=== PATIENT | female | born 1955 | race Caucasian/White ===

== ENCOUNTER → 2016-10-09 | Outpatient (CLI) | payer MEDICARE ==
--- NOTE | 2016-10-14 10:20 | P.ARTDOP ---
Arterial Doppler LOWER EXTREMITY ARTERIAL DOPPLER: DATE OF SERVICE: 10/09/2016 Reason for study: Leg pain. Doppler waveforms: Multiphasic at the femoral level and atypical below. Pulse volume recording: Progressive blunting from calf and ankle. Pressure gradients: Above the low 5 bilaterally. Ankle-brachial indices: 0.71 on the right and 0.63 on the left. Toe pressures: [] on the right, [] on the left Impression: Moderate bilateral fem-pop disease. Clinical correlation recommended..
== END | disposition home or self-care (01) ==
LOC: RADUSWWP 08:15
PROVIDERS: ATTEND Family Medicine
DX: G89.4 Chronic pain syndrome (principal)
CPT/HCPCS: 93923

== ENCOUNTER 2018-02-17 19:00 | Inpatient (IN) | payer MEDICARE ==
[~2018-02-17 19:00] MED LIST: HYDROcodone/APAP 10-325MG 1 EACH TAB ONE
[2018-02-17] MEDS ORDERED: ASPIRIN 81 MG PO STA (19:28)
[2018-02-17 19:41] LABS: Basophils % (A) 0 %; Eosinophils # (A) 0.1 k/uL (0-0.7); Eosinophils % (A) 1 %; HCT 35.7 % (34.0-46.0); HGB 11.5 gm/dL (11.4-16.0); Hypochromasia Slight; Lymphocytes # (A) 1.5 k/uL (1.0-4.8); Lymphocytes % (A) 28 %; MCH 27.7 pg (25.0-35.0); MCHC 32.3 g/dL (31.0-37.0); MCV 85.6 fL (80.0-100.0); Mean Platelet Volume 7.9; Monocytes # (A) 0.5 k/uL (0-1.0); Monocytes % (A) 9 %; Neutrophils # (A) 3.2 k/uL (1.3-7.7); Neutrophils % (A) 58 %; Platelet Count 220 k/uL (150-450); RBC 4.17 m/uL (3.80-5.40); RDW 15.7 % (11.5-15.5); WBC 5.5 k/uL (3.8-10.6)
[2018-02-17 19:49] LABS: Partial Thromboplastin Time 25.7 sec (22.0-30.0); Prothrombin Time 9.7 sec (9.0-12.0)
[2018-02-17 20:00] LABS: Albumin 3.7 g/dL (3.5-5.0); Calcium 8.9 mg/dL (8.4-10.2); Magnesium 2.1 mg/dL (1.6-2.3); Potassium 4.9 mmol/L (3.5-5.1); Total Bilirubin 0.2 mg/dL (0.2-1.3); Total Protein 6.5 g/dL (6.3-8.2)
--- NOTE | 2018-02-17 20:01 | XR ---
EXAMINATION TYPE: XR chest 2V DATE OF EXAM: 02/17/2018 COMPARISON: 08/27/2010 HISTORY: Left side chest pain TECHNIQUE: Frontal and lateral views of the chest are obtained. FINDINGS: Heart is normal. Lungs are clear of consolidation. There are sternal wires. There are surg ical clips in the anterior mediastinum. There is no pleural effusion. Bony thorax is intact. There is osteopenia. IMPRESSION: No active cardiopulmonary disease. Heart and lungs are unchanged compared to old exam.
[2018-02-17 20:07] LABS: Creatine Kinase 87 U/L (30-135)
--- NOTE | 2018-02-17 20:07 | ED ---
General Adult HPI - General Chief complaint: Chest Pain Stated complaint: Chest Heaviness Source: patient Mode of arrival: wheelchair Limitations: no limitations - History of Present Illness Initial comments: Dictation was produced using [employer] dictation software. please excuse any grammatical, word or spelling errors. Chief Complaint: 62-year-old female past medical history of coronary artery disease, status post CABG and multiple stents since with chest heaviness times one day. History of Present Illness: Patient states she was at home when approximately 3 PM she began experiencing chest tightness. Patient denies any radiation to the shoulders or the neck. Denies any associated shortness of breath or diaphoresis. Patient took one sublingual ventricular strain with improvement of her symptoms. She was instructed to come here by her primary care physician. Patient last seen a ict project manager proximally 2 years ago where a provocative testing was done. Patient has not had any issues since. Patient still complaining of some chest tightness over improved since the nitroglycerin. Denies any constitutional symptoms. The ROS documented in this emergency department record has been reviewed and confirmed by me. Those systems with pertinent positive or negative responses have been documented in the HPI. All other systems are other negative and/or noncontributory. - Related Data Home Medications Medication Instructions Recorded Confirmed Cilostazol [Pletal] 100 mg PO BID 02/17/18 02/17/18 Citalopram Hydrobromide [CeleXA] 20 mg PO DAILY 02/17/18 02/17/18 Docusate [Colace] 100 mg PO DAILY 02/17/18 02/17/18 Doxepin [SINEquan] 25 mg PO HS 02/17/18 02/17/18 Hydrocodone/Acetaminophen [[place] 1 tab PO QID 02/17/18 02/17/18 10-325] Labetalol [Trandate] 100 mg PO BID 02/17/18 02/17/18 Lansoprazole [Prevacid] 15 mg PO DAILY 02/17/18 02/17/18 Morphine Sulfate [Ms Contin] 15 mg PO DAILY 02/17/18 02/17/18 hydrALAZINE HCL [Apresoline] 100 mg PO TID 02/17/18 02/17/18 Allergies Allergy/AdvReac Type Severity Reaction Status Date / Time No Known Allergies Allergy Verified 02/17/18 19:34 Review of Systems ROS Statement: Those systems with pertinent positive or pertinent negative responses have been documented in the HPI. ROS Other: All systems not noted in ROS Statement are negative. Past Medical History Past Medical History: Coronary Artery Disease (CAD), Hypertension History of Any Multi-Drug Resistant Organisms: None Reported Past Surgical History: Coronary Bypass/CABG, Heart Catheterization With Stent Additional Past Surgical History / Comment(s): gastric bypass, hip Past Psychological History: Depression Smoking Status: Current every day smoker Past Alcohol Use History: None Reported Past Drug Use History: None Reported General Exam - General Exam Comments Initial Comments: PHYSICAL EXAM: General Impression: Alert and oriented x3, not in acute distress HEENT: Normocephalic atraumatic, extra-ocular movements intact, pupils equal and reactive to light bilaterally, mucous membranes moist. Cardiovascular: One out of 6 systolic murmur, regular rate and rhythm Chest: Lungs clear to auscultation bilaterally, no rhonchi, no wheeze, no rales Abdomen: Bowel sounds present, abdomen soft, non-tender, non-distended, no organomegaly Musculoskeletal: Pulses present and equal in all extremities, no peripheral edema Motor: Power 5/5 bilaterally, no focal deficits noted Neurological: CN II-XII grossly intact, no focal motor or sensory deficits noted Skin: Intact with no visualized rashes Psych: Normal affect and mood Limitations: no limitations Course Vital Signs 02/17/18 19:09 Temperature 98.3 F Pulse Rate 78 Respiratory 18 Rate Blood Pressure 186/89 O2 Sat by Pulse 96 Oximetry Medical Decision Making - Medical Decision Making ED course: 62-year-old failed extensive cardiac history presents with patient concerning for ACS. Vital signs upon arrival shows blood pressure 186/ 89, worse vital signs within acceptable limits. Laboratory evaluation shows CBC within normal limits. Coag panel unremarkable. Metabolic panel shows mild elevation of renal markers.Cardiac enzymes are negative. Discussed with patient that we recommend that she be admitted to the hospital for further cardiac provocative testing. Patient given the option to stay under observation however she went to leave AGAINST MEDICAL ADVICE. Discussed with patient that her symptoms are suspicious for acute coronary syndrome. Discussed patient that if she believes she is at risk for having a major adverse cardiac event. She understands the risk. She is told that if she has worsening chest pain to come back to the emergency department otherwise she should follow-up with her primary care physician. EKG Interpretation: A 12 lead EKG was obtained. It was interpreted by myself and attending physician. There is a P wave before every QRS complex. Rate is 74. Rhythm is normal sinus rhythm, AL interval 154, care is 92, QTC 3. QT is not prolonged. No ST segment depression or elevation. There is no old EKG for comparison. There is nonspecific T-wave abnormalities to the lateral leads. Not consistent with STEMI - Lab Data Result diagrams: 02/17/18 19:30 02/17/18 19:30 Lab Results 02/17/18 02/17/18 02/17/18 Range/Units 19:30 19:30 19:30 WBC 5.5 (3.8-10.6) k/uL RBC 4.17 (3.80-5.40) m/uL Hgb 11.5 (11.4-16.0) gm/dL Hct 35.7 (34.0-46.0) % MCV 85.6 (80.0-100.0) fL MCH 27.7 (25.0-35.0) pg MCHC 32.3 (31.0-37.0) g/dL RDW 15.7 H (11.5-15.5) % Plt Count 220 (150-450) k/uL Neutrophils % 58 % Lymphocytes % 28 % Monocytes % 9 % Eosinophils % 1 % Basophils % 0 % Neutrophils # 3.2 (1.3-7.7) k/uL Lymphocytes # 1.5 (1.0-4.8) k/uL Monocytes # 0.5 (0-1.0) k/uL Eosinophils # 0.1 (0-0.7) k/uL Basophils # 0.0 (0-0.2) k/uL Hypochromasia Slight PT (9.0-12.0) sec INR (<1.2) APTT (22.0-30.0) sec Sodium 141 (137-145) mmol/L Potassium 4.9 (3.5-5.1) mmol/L Chloride 107 (98-107) mmol/L Carbon Dioxide 27 (22-30) mmol/L Anion Gap 7 mmol/L BUN 19 H (7-17) mg/dL Creatinine 1.30 H (0.52-1.04) mg/dL Est GFR (CKD-EPI)AfAm 51 (>60 ml/min/1.73 sqM) Est GFR (CKD-EPI)NonAf 44 (>60 ml/min/1.73 sqM) Glucose 99 (74-99) mg/dL Calcium 8.9 (8.4-10.2) mg/dL Magnesium 2.1 (1.6-2.3) mg/dL Total Bilirubin 0.2 (0.2-1.3) mg/dL AST 17 (14-36) U/L ALT 20 (9-52) U/L Alkaline Phosphatase 113 (38-126) U/L Total Creatine Kinase 87 (30-135) U/L CK-MB (CK-2) 0.6 (0.0-2.4) ng/mL CK-MB (CK-2) Rel Index 0.7 Troponin I <0.012 (0.000-0.034) ng/mL NT-Pro-B Natriuret Pep pg/mL Total Protein 6.5 (6.3-8.2) g/dL Albumin 3.7 (3.5-5.0) g/dL 02/17/18 02/17/18 Range/Units 19:30 19:30 WBC (3.8-10.6) k/uL RBC (3.80-5.40) m/uL Hgb (11.4-16.0) gm/dL Hct (34.0-46.0) % MCV (80.0-100.0) fL MCH (25.0-35.0) pg MCHC (31.0-37.0) g/dL RDW (11.5-15.5) % Plt Count (150-450) k/uL Neutrophils % % Lymphocytes % % Monocytes % % Eosinophils % % Basophils % % Neutrophils # (1.3-7.7) k/uL Lymphocytes # (1.0-4.8) k/uL Monocytes # (0-1.0) k/uL Eosinophils # (0-0.7) k/uL Basophils # (0-0.2) k/uL Hypochromasia PT 9.7 (9.0-12.0) sec INR 1.0 (<1.2) APTT 25.7 (22.0-30.0) sec Sodium (137-145) mmol/L Potassium (3.5-5.1) mmol/L Chloride (98-107) mmol/L Carbon Dioxide (22-30) mmol/L Anion Gap mmol/L BUN (7-17) mg/dL Creatinine (0.52-1.04) mg/dL Est GFR (CKD-EPI)AfAm (>60 ml/min/1.73 sqM) Est GFR (CKD-EPI)NonAf (>60 ml/min/1.73 sqM) Glucose (74-99) mg/dL Calcium (8.4-10.2) mg/dL Magnesium (1.6-2.3) mg/dL Total Bilirubin (0.2-1.3) mg/dL AST (14-36) U/L ALT (9-52) U/L Alkaline Phosphatase (38-126) U/L Total Creatine Kinase (30-135) U/L CK-MB (CK-2) (0.0-2.4) ng/mL CK-MB (CK-2) Rel Index Troponin I (0.000-0.034) ng/mL NT-Pro-B Natriuret Pep 1450 pg/mL Total Protein (6.3-8.2) g/dL Albumin (3.5-5.0) g/dL Disposition Clinical Impression: Acute coronary syndrome Disposition: Left Against Medical Advice Condition: Fair Is patient prescribed a controlled substance at d/c from ED?: No Referrals: Allyson Petty MD [Primary Care Provider] - 1-2 days Time of Disposition: 20:34
[2018-02-17] MEDS ORDERED: NITROGLYCERIN OINT 1 INCH/GM PACKET TOPICAL STA (20:08)
[2018-02-17 20:19] LABS: Creatine Kinase MB 0.6 ng/mL (0.0-2.4); Troponin I <0.012 ng/mL (0.000-0.034)
[2018-02-17] MEDS ORDERED: HEPARIN SODIUM,PORCINE 5,000 UNIT/ML 1 ML VIAL IV ONE (20:27)
[2018-02-17] MEDS ORDERED: HEPARIN SODIUM,PORCINE 5,000 UNIT/ML 1 ML VIAL IV PRN (20:27)
[2018-02-17] MEDS: HEPARIN SOD,PORK IN 0.45% NACL 25,000 UNIT in 0.45% NACL 1 500ML.BAG IV SCH ×2 (20:32→21:34)
[2018-02-17] MEDS ORDERED: NITROGLYCERIN-D5W PMX 50 MG in DEXTROSE/WATER 1 250ML.BAG IV ONE (20:43)
[2018-02-17] MEDS ORDERED: NALOXONE 0.4 MG/ML 1 ML VIAL IV PRN (20:55)
[2018-02-17] MEDS ORDERED: HEPARIN SODIUM,PORCINE 5,000 UNIT/ML 1 ML VIAL IV STA (21:04)
[2018-02-18] MEDS ORDERED: HYDROcodone/APAP 10-325MG 1 EACH TAB ONE (01:25)
[2018-02-18 03:03] LABS: Basophils % (A) 1 %; Eosinophils # (A) 0.1 k/uL (0-0.7); Eosinophils % (A) 1 %; HCT 34.1 % (34.0-46.0); HGB 10.6 gm/dL (11.4-16.0); Hypochromasia Slight; Lymphocytes # (A) 1.4 k/uL (1.0-4.8); Lymphocytes % (A) 22 %; MCH 26.8 pg (25.0-35.0); MCHC 30.9 g/dL (31.0-37.0); MCV 86.6 fL (80.0-100.0); Mean Platelet Volume 7.1; Monocytes # (A) 0.5 k/uL (0-1.0); Monocytes % (A) 9 %; Neutrophils # (A) 3.8 k/uL (1.3-7.7); Neutrophils % (A) 64 %; Platelet Count 221 k/uL (150-450); RBC 3.94 m/uL (3.80-5.40); RDW 15.7 % (11.5-15.5)
[2018-02-18] MEDS: hydrALAZINE HCL 50 MG TAB PO SCH ×3 (09:04→21:14)
[2018-02-18] MEDS: PANTOPRAZOLE 40 MG TABLET PO SCH (09:04)
[2018-02-18] MEDS: CITALOPRAM HYDROBROMIDE 20 MG TAB PO SCH (09:04)
[2018-02-18] MEDS: DOCUSATE 100 MG CAP PO SCH (09:04)
[2018-02-18] MEDS: LABETALOL 100 MG TAB PO SCH ×2 (09:04→22:52)
[2018-02-18] MEDS: CILOSTAZOL 100 MG TAB PO SCH ×2 (09:04→21:15)
[2018-02-18] MEDS: MORPHINE SULFATE ER 15 MG TABLET PO SCH (10:25)
[2018-02-18] MEDS ORDERED: amLODIPine 5 MG TAB PO SCH (11:45)
[2018-02-18] MEDS: HYDROcodone/APAP 10-325MG 1 EACH TAB PO PRN ×3 (11:52→22:52)
--- NOTE | 2018-02-18 12:07 | P.CRDCN ---
History of Present Illness Consult date: 02/18/18 Requesting physician: Carl Alas Consult reason: chest pain Chief complaint: Chest pain History of present illness: This is a 62-year-old female with history of coronary artery disease and prior bypass surgery in 1999, hypertension, hyperlipidemia, nicotine dependence, who presents to the hospital following an episode of chest pain. She states that she had chest heaviness and pressure around 3 PM in the afternoon yesterday, she took one sublingual nitroglycerin with relief of symptoms. She then came to the emergency room for further evaluation. Patient does not follow with a travel writer regularly, she follows with her primary care doctor who is Dr. Petty. She states that she had a stress test performed approximately 2 years ago. EKG on arrival here showed a normal sinus rhythm with lateral ST-T wave changes noted. Her blood pressure on arrival 186/80 with a heart rate in the 70s, 96% on room air. Blood pressure this morning to 21/101 with a heart rate in the 70s, 94% on room air. White blood cell count 6.0, Humulin 10.6, platelet count 221. D-dimer 1.18, sodium 141, potassium 4.9 , BUN 19, creatinine 1.3, magnesium 2.1. Initial troponin 0.012, no subsequent troponins have been drawn since her admission to the ER. BNP level MCDL. The time of my examination this morning, she is currently chest pain-free and quite eager to be discharged. She is currently on IV heparin drip along with IV nitroglycerin drip. Patient denies any recent long travel or inactivity, no recent surgeries. Past Medical History Past Medical History: Coronary Artery Disease (CAD), Hypertension History of Any Multi-Drug Resistant Organisms: None Reported Past Surgical History: Coronary Bypass/CABG, Heart Catheterization With Stent Additional Past Surgical History / Comment(s): gastric bypass, hip Past Psychological History: Depression Smoking Status: Current every day smoker Past Alcohol Use History: None Reported Past Drug Use History: None Reported Medications and Allergies Home Medications Medication Instructions Recorded Confirmed Type Cilostazol [Pletal] 100 mg PO BID 02/17/18 02/17/18 History Citalopram Hydrobromide [CeleXA] 20 mg PO DAILY 02/17/18 02/17/18 History Docusate [Colace] 100 mg PO DAILY 02/17/18 02/17/18 History Doxepin [SINEquan] 25 mg PO HS 02/17/18 02/17/18 History Hydrocodone/Acetaminophen [[place] 1 tab PO QID 02/17/18 02/17/18 History 10-325] Labetalol [Trandate] 100 mg PO BID 02/17/18 02/17/18 History Lansoprazole [Prevacid] 15 mg PO DAILY 02/17/18 02/17/18 History Morphine Sulfate [Ms Contin] 15 mg PO DAILY 02/17/18 02/17/18 History hydrALAZINE HCL [Apresoline] 100 mg PO TID 02/17/18 02/17/18 History Allergies Allergy/AdvReac Type Severity Reaction Status Date / Time No Known Allergies Allergy Verified 02/17/18 19:34 Physical Exam Vitals: Vital Signs Temp Pulse Resp BP Pulse Ox 02/18/18 11:49 78 16 221/101 94 L 02/18/18 10:28 75 18 193/85 97 02/18/18 09:05 72 18 225/90 98 02/18/18 06:42 193/88 02/17/18 22:17 77 16 191/86 95 02/17/18 22:00 199/85 02/17/18 21:45 75 195/88 95 02/17/18 21:37 77 16 213/96 96 02/17/18 21:30 74 213/96 02/17/18 20:38 221/90 02/17/18 20:35 219/102 02/17/18 19:09 98.3 F 78 18 186/89 96 Intake and Output 02/17/18 02/18/18 02/18/18 22:59 06:59 14:59 Intake Total 160.833 Balance 160.833 Intake: Intake, IV Titration 160.833 Amount Heparin Sod,Pork in 0.45% 160.833 NaCl 25,000 unit In 0.45 % NaCl 1 500ml.bag @ 12 UNITS/KG/HR 12.5 mls/hr IV .Q24H [facility] Rx#: [id number] Other: Weight 52.1 kg PHYSICAL EXAMINATION: GENERAL: 62-year-old female in no distress at the time of my examination HEENT: Head is atraumatic, normocephalic. Pupils equal, round. Sclera anicteric. Conjunctiva are clear. Mucous membranes of the mouth are moist. Neck is supple. There is no elevated jugular venous pressure.] bruit is heard. HEART EXAMINATION: Heart S1, S2 systolic murmur is heard . CHEST EXAMINATION: Lungs are clear to auscultation and precussion. No chest wall tenderness is noted on palpation or with deep breathing. ABDOMEN: Soft, nontender. Bowel sounds are heard. No organomegaly noted. EXTREMITIES: 2+ peripheral pulses with no evidence of peripheral edema and no calf tenderness noted. NEUROLOGIC patient is awake, alert and oriented ?-3. . Results 02/18/18 02:34 02/17/18 19:30 Cardiac Enzymes 02/17/18 02/17/18 Range/Units 19:30 19:30 AST 17 (14-36) U/L CK-MB (CK-2) 0.6 (0.0-2.4) ng/mL Troponin I <0.012 (0.000-0.034) ng/mL Coagulation 02/17/18 02/18/18 02/18/18 Range/Units 19:30 02:34 09:10 PT 9.7 (9.0-12.0) sec APTT 25.7 41.6 H 35.6 H (22.0-30.0) sec CBC 02/17/18 02/18/18 Range/Units 19:30 02:34 WBC 5.5 6.0 (3.8-10.6) k/uL RBC 4.17 3.94 (3.80-5.40) m/uL Hgb 11.5 10.6 L (11.4-16.0) gm/dL Hct 35.7 34.1 (34.0-46.0) % Plt Count 220 221 (150-450) k/uL Comprehensive Metabolic Panel 02/17/18 Range/Units 19:30 Sodium 141 (137-145) mmol/L Potassium 4.9 (3.5-5.1) mmol/L Chloride 107 (98-107) mmol/L Carbon Dioxide 27 (22-30) mmol/L BUN 19 H (7-17) mg/dL Creatinine 1.30 H (0.52-1.04) mg/dL Glucose 99 (74-99) mg/dL Calcium 8.9 (8.4-10.2) mg/dL AST 17 (14-36) U/L ALT 20 (9-52) U/L Alkaline Phosphatase 113 (38-126) U/L Total Protein 6.5 (6.3-8.2) g/dL Albumin 3.7 (3.5-5.0) g/dL Current Medications Generic Name Dose Route Start Last Admin Trade Name Freq PRN Reason Stop Dose Admin Hydrocodone Bitart/Acetaminophen 1 each 02/18/18 09:00 02/18/18 11:52 [place] 10 PO 1 each QID PRN Administration Moderate Pain Amlodipine Besylate 5 mg 02/18/18 11:45 02/18/18 11:49 Norvasc PO 5 mg DAILY [facility] Administration Cilostazol 100 mg 02/18/18 09:00 02/18/18 09:04 Pletal PO 100 mg BID [facility] Administration Citalopram Hydrobromide 20 mg 02/18/18 09:00 02/18/18 09:04 Celexa PO 20 mg DAILY [facility] Administration Docusate Sodium 100 mg 02/18/18 09:00 02/18/18 09:04 Colace PO 100 mg DAILY [facility] Administration Doxepin HCl 25 mg 02/18/18 21:00 [place]ine[place]an PO HS [facility] Heparin Sodium (Porcine) 0 unit 02/17/18 20:27 Heparin IV PER PROTOCOL PRN Low PTT Protocol Hydralazine HCl 100 mg 02/18/18 09:00 02/18/18 09:04 Apresoline PO 100 mg TID [facility] Administration Heparin Sodium/Sodium Chloride 500 mls @ 12.5 mls/hr 02/17/18 20:30 02/18/18 10:26 25,000 unit/ Sodium Chloride IV 15 units/kg/hr .Q24H [facility] 15.63 mls/hr Titration Protocol 12 UNITS/KG/HR Nitroglycerin/Dextrose 50 mg/ 250 mls @ 1.5 mls/hr 02/17/18 20:43 02/17/18 21 :35 IV Solution IV 02/18/18 20:42 5 mcg/min .Q24H ONE 1.5 mls/hr Administration Protocol 5 MCG/MIN Labetalol HCl 100 mg 02/18/18 09:00 02/18/18 09:04 Trandate PO 100 mg BID [facility] Administration Morphine Sulfate 15 mg 02/18/18 09:00 02/18/18 10:25 Ms Contin PO 15 mg DAILY [facility] Administration Naloxone HCl 0.2 mg 02/17/18 20:55 Narcan IV Q2M PRN Opioid Reversal Pantoprazole Sodium 40 mg 02/18/18 07:30 02/18/18 09:04 Protonix PO 40 mg [id number] K[facility]ON Administration Intake and Output 02/17/18 02/18/18 02/18/18 22:59 06:59 14:59 Intake Total 160.833 Balance 160.833 Intake: Intake, IV Titration 160.833 Amount Heparin Sod,Pork in 0.45% 160.833 NaCl 25,000 unit In 0.45 % NaCl 1 500ml.bag @ 12 UNITS/KG/HR 12.5 mls/hr IV .Q24H [facility] Rx#: [id number] Other: Weight 52.1 kg 02/18/18 02:34 02/17/18 19:30 EKG Interpretations (text) EKG shows a normal sinus rhythm with ST-T wave changes noted in the lateral leads Assessment and Plan Plan: Assessment and plan #1 chest discomfort, somewhat concerning for possible angina. Relief with one sublingual nitroglycerin. Initial troponin negative. EKG shows normal sinus rhythm with ST-T wave changes noted in the lateral leads. #2 known history of coronary artery disease with prior bypass surgery, we will obtain details of this #3 hypertension, uncontrolled #4 hyperlipidemia, not on cholesterol medications at home #5 nicotine dependence #6 noncompliance #7 mildly renal function, creatinine 1.3 Plan We will obtain an echocardiogram with Doppler study, we will also obtain 2 subsequent troponins. Patient's d-dimer has back abnormal, we will need to rule out possibility of pulmonary embolism. We will make medication adjustments to optimize blood pressure control. Patient's symptoms may be secondary to her accelerated hypertension, cannot completely rule out coronary artery disease. We will continue IV heparin, discontinue the nitroglycerin drip , start the patient on aspirin and statin. Further recommendations will be based on these findings and patient's clinical course. DNP note has been reviewed, I agree with a documented findings and plan of care. Patient was seen and examined.
--- NOTE | 2018-02-18 12:09 | ECHOF ---
Referral Reason:chest pain MEASUREMENTS -------- HEIGHT: 160.0 cm WEIGHT: 51.7 kg BP: IVSd: 1.3 cm (0.6 - 1.1) LVIDd: 3.6 cm (3.9 - 5.3) LVPWd: 1.6 cm (0.6 - 1.1) IVSs: 1.9 cm LVIDs: 2.6 cm LVPWs: 1.8 cm LAESV Index (A-L): 49.36 ml/m Ao Diam: 2.5 cm (2.0 - 3.7) AV Cusp: 2.1 cm (1.5 - 2.6) LA Diam: 4.5 cm (2.7 - 3.8) MV EXCURSION: 12.148 mm (> 18.000) MV EF SLOPE: 78 mm/s (70 - 150) EPSS: 0.3 cm AV maxP.69 mmHg AV meanP.74 mmHg AR PHT: 387 ms RAP: 5.00 mmHg RVSP: 26.64 mmHg FINDINGS -------- Sinus rhythm. This was a technically good study. The left ventricular size is normal. There is moderate concentric left ventricular hypertrophy. O verall left ventricular systolic function is normal with, an EF between 55 - 60 %. The right ventricle is normal in size and function. LA is severely dilated >40 ml/m2 The right atrium is normal in size. Aortic valve is trileaflet and is mildly thickened. There is mild aortic regurgitation. There is mild aortic stenosis present. Peak/mean gradient across the Aortic Valve is 25.69mmHg / 11.74mmHg. The mitral valve leaflets are mildly thickened. Mild mitral annular calcification present. Modera te mitral regurgitation is present. Mild tricuspid regurgitation present. The right ventricular systolic pressure, as measured by Doppl er, is 26.64mmHg. Pulmonic valve appears structurally normal. The aortic root size is normal. The pericardium is normal. CONCLUSIONS -------- 1. Sinus rhythm. 2. This was a technically good study. 3. The left ventricular size is normal. 4. There is moderate concentric left ventricular hypertrophy. 5. Overall left ventricular systolic function is normal with, an EF between 55 - 60 %. 6. The right ventricle is normal in size and function. 7. LA is severely dilated >40 ml/m2 8. The right atrium is normal in size. 9. Aortic valve is trileaflet and is mildly thickened. 10. There is mild aortic regurgitation. 11. There is mild aortic stenosis present. 12. Peak/mean gradient across the Aortic Valve is 25.69mmHg / 11.74mmHg. 13. The mitral valve leaflets are mildly thickened. 14. Mild mitral annular calcification present. 15. Moderate mitral regurgitation is present. 16. Mild tricuspid regurgitation present. 17. The right ventricular systolic pressure, as measured by Doppler, is 26.64mmHg. 18. Pulmonic valve appears structurally normal. 19. The aortic root size is normal. 20. The pericardium is normal. PLASTERER FOREMAN: Romina Muñiz RDCS
[2018-02-18] MEDS ORDERED: ENALAPRILAT 1.25 MG/ML 1 ML VIAL IVP PRN (12:19)
[2018-02-18] MEDS: NITROGLYCERIN OINT 1 INCH/GM PACKET TOPICAL SCH ×3 (12:56→23:41)
[2018-02-18] MEDS: cloNIDine HCL 0.1 MG TAB PO SCH ×3 (12:56→20:04)
[2018-02-18 14:21] VITALS: BMI 20.3
--- NOTE | 2018-02-18 14:50 | P.HPIM ---
History of Present Illness H&P Date: 02/18/18 Chief Complaint: Chest pressure this is a 62-year-old female patient of Dr. Petty with past medical history of coronary artery disease status post coronary artery bypass graft in 1999 for three-vessel (needed 4 vessel), hypertension. Patient has not followed up with Dr. Thanh Laureano in 5 years. She last saw Dr. child 3 months ago and follows with her every 3 months. Patient developed chest tightness yesterday at 3 PM without radiation, shortness of breath or diaphoresis. Patient came into [facility] emergency center for evaluation. She was found to have a BUN of 19 creatinine 1.30. Unknown baseline. Patient was hypertensive and was started on the nitroglycerin drip which has subsequently been discontinued by cardiology. She was started on amlodipine on top of her normal home medications of labetalol and hydrochlorothiazide. Patient has been ordered for serial troponins, admission to the selective care unit and cardiology consult. Now the patient did not want to stay was planning to sign out AMA which she decided against.. Review of Systems All systems: negative Constitutional: Denies chills, Denies fever Eyes: denies blurred vision, denies pain Ears, nose, mouth and throat: Denies headache, Denies sore throat Cardiovascular: Reports chest pain, Denies lightheadedness, Denies shortness of breath, Denies syncope Respiratory: Denies cough, Denies cough with sputum, Denies dyspnea, Denies excessive sputum, Denies hemoptysis, Denies home oxygen, Denies wheezing Gastrointestinal: Denies abdominal pain, Denies diarrhea, Denies nausea, Denies vomiting Genitourinary: Denies dysuria, Denies hematuria Musculoskeletal: Denies myalgias Integumentary: Denies pruritus, Denies rash Neurological: Denies numbness, Denies weakness Psychiatric: Denies anxiety, Denies depression Endocrine: Denies fatigue, Denies weight change Past Medical History Past Medical History: Coronary Artery Disease (CAD), Hypertension History of Any Multi-Drug Resistant Organisms: None Reported Past Surgical History: Appendectomy, Cholecystectomy, Coronary Bypass/CABG, Heart Catheterization With Stent Additional Past Surgical History / Comment(s): gastric bypass, hip repair, hysterectomy, history of perforated ulcer after gastric bypass Past Psychological History: Depression Smoking Status: Current every day smoker Past Alcohol Use History: None Reported Additional Past Alcohol Use History / Comment(s): Patient is a smoker of 5-6 cigarettes per day since she was 14 years of age. She did quit for 10 years. She denies any alcohol use. No marijuana use. She is . Past Drug Use History: None Reported - Past Family History Sister(s) Family Medical History: Hypertension Additional Family Medical History / Comment(s): Patient has one sister with history of hypertension. Mother Family Medical History: Congestive Heart Failure (CHF), Hypertension Additional Family Medical History / Comment(s): Mother at age 74 from heart failure. Father Family Medical History: Coronary Artery Disease (CAD), Myocardial Infarction (SD ) Additional Family Medical History / Comment(s): Father at age 55 from massive myocardial infarction. Patient is for children with no major medical problems. Medications and Allergies Home Medications Medication Instructions Recorded Confirmed Type Cilostazol [Pletal] 100 mg PO BID 02/17/18 02/17/18 History Citalopram Hydrobromide [CeleXA] 20 mg PO DAILY 02/17/18 02/17/18 History Docusate [Colace] 100 mg PO DAILY 02/17/18 02/17/18 History Doxepin [SINEquan] 25 mg PO HS 02/17/18 02/17/18 History Hydrocodone/Acetaminophen [[place] 1 tab PO QID 02/17/18 02/17/18 History 10-325] Labetalol [Trandate] 100 mg PO BID 02/17/18 02/17/18 History Lansoprazole [Prevacid] 15 mg PO DAILY 02/17/18 02/17/18 History Morphine Sulfate [Ms Contin] 15 mg PO DAILY 02/17/18 02/17/18 History hydrALAZINE HCL [Apresoline] 100 mg PO TID 02/17/18 02/17/18 History Allergies Allergy/AdvReac Type Severity Reaction Status Date / Time No Known Allergies Allergy Verified 02/17/18 19:34 Physical Exam Vitals: Vital Signs Temp Pulse Resp BP Pulse Ox 02/18/18 11:49 78 16 221/101 94 L 02/18/18 10:28 75 18 193/85 97 02/18/18 09:05 72 18 225/90 98 02/18/18 06:42 193/88 02/17/18 22:17 77 16 191/86 95 02/17/18 22:00 199/85 02/17/18 21:45 75 195/88 95 02/17/18 21:37 77 16 213/96 96 02/17/18 21:30 74 213/96 02/17/18 20:38 221/90 02/17/18 20:35 219/102 02/17/18 19:09 98.3 F 78 18 186/89 96 Intake and Output 02/17/18 02/18/18 02/18/18 22:59 06:59 14:59 Intake Total 160.833 Balance 160.833 Intake: Intake, IV Titration 160.833 Amount Heparin Sod,Pork in 0.45% 160.833 NaCl 25,000 unit In 0.45 % NaCl 1 500ml.bag @ 12 UNITS/KG/HR 12.5 mls/hr IV .Q24H [facility] Rx#: [id number] Other: Weight 52.1 kg Gen: This is a 62-year-old female. She is sitting up in bed appears to be in no acute distress. HEENT: Head is atraumatic, normocephalic. Pupils equal, round. Sclerae is anicteric. NECK: Supple. No JVD. No lymphadenopathy. No thyromegaly. LUNGS: Clear to auscultation. No wheezes or rhonchi. No intercostal retractions. HEART: Regular rate and rhythm. Systolic murmur. ABDOMEN: Soft. Bowel sounds are present. No masses. No tenderness. EXTREMITIES: No pedal edema. No calf tenderness. Dorsalis pedis +2 bilaterally. NEUROLOGICAL: Patient is awake, alert and oriented x3. Cranial nerves 2 through 12 are grossly intact. Results CBC & Chem 7: 02/18/18 02:34 02/17/18 19:30 Labs: Abnormal Lab Results - Last 24 Hours (Table) 02/17/18 02/17/18 02/17/18 Range/Units 19:30 19:30 19:30 Hgb (11.4-16.0) gm/dL MCHC (31.0-37.0) g/dL RDW 15.7 H (11.5-15.5) % APTT (22.0-30.0) sec D-Dimer 1.18 H (<0.60) mg/L FEU BUN 19 H (7-17) mg/dL Creatinine 1.30 H (0.52-1.04) mg/dL 02/18/18 02/18/18 02/18/18 Range/Units 02:34 02:34 09:10 Hgb 10.6 L (11.4-16.0) gm/dL MCHC 30.9 L (31.0-37.0) g/dL RDW 15.7 H (11.5-15.5) % APTT 41.6 H 35.6 H (22.0-30.0) sec D-Dimer (<0.60) mg/L FEU BUN (7-17) mg/dL Creatinine (0.52-1.04) mg/dL Thrombosis Risk Factor Assmnt - DVT/VTE Prophylaxis DVT/VTE Prophylaxis: Pharmacologic Prophylaxis ordered Assessment and Plan Plan: 1. Emergent hypertension initially placed on heparin drip. Continue home dose of hydrochlorothiazide, Trandate, Norvasc added by cardiology. We've also added and clonidine scheduled and Vasotec as needed. Cardiology consult is appreciated. 2. Chest pain, possible angina. Serial cardiac enzymes. Heparin drip. Cardiology is on consult. 3. History of coronary artery disease status post previous CABG. Continue aspirin. 4. Recurrent depression. Continue doxepin 25 mg at bedtime, Celexa 20 mg daily. 5. Chronic pain. Continue MS Contin 15 mg daily. 6. DVT prophylaxis. Heparin gtt. 7. DVT prophylaxis. Pepcid. Patient will be admitted to the hospital for a minimum of 2 night stay. Discharge plan: return home Impression and plan of care have been directed as dictated by the signing physician. Milagro Gordon nurse practitioner acting as scribe for signing physician.
--- NOTE | 2018-02-18 16:58 | NM ---
EXAMINATION TYPE: NM pul vent and perfuse DATE OF EXAM: 02/18/2018 COMPARISON: NONE HISTORY: Chest pain TECHNIQUE: Utilizing inhalation of 31.4 mCi Tc 99m DTPA aerosol and intravenous injection of 5.13 mC i of Tc 99m MAA, ventilation and perfusion images are acquired post injection in multiple projections . FINDINGS: There is decreased ventilation in the mid and upper lung britt bilaterally. Perfusion images are smita rly normal. There is no segmental type defect. IMPRESSION: Decreased ventilation in the mid and upper lung britt consistent with airway disease. There is a smita rly normal perfusion lung scan. There is a very low probability of pulmonary embolism.
[2018-02-18] MEDS: HYDROCHLOROTHIAZIDE 25 MG TAB PO SCH (17:04)
[2018-02-18] MEDS: amLODIPine 5 MG TAB PO SCH (20:05)
[2018-02-18] MEDS ORDERED: ATORVASTATIN 80 MG TAB PO SCH (21:00)
[2018-02-18] MEDS ORDERED: DOXEPIN 25 MG CAP PO SCH (21:00)
[2018-02-18] MEDS ORDERED: CALCIUM CARBONATE 500 MG CHEWABLE PO PRN (21:21)
[2018-02-19] MEDS: NITROGLYCERIN OINT 1 INCH/GM PACKET TOPICAL SCH ×2 (06:02→11:29)
[2018-02-19] MEDS: PANTOPRAZOLE 40 MG TABLET PO SCH (06:08)
[2018-02-19] MEDS: hydrALAZINE HCL 50 MG TAB PO SCH (06:08)
[2018-02-19] MEDS: cloNIDine HCL 0.1 MG TAB PO SCH (06:09)
[2018-02-19 06:27] LABS: Basophils % (A) 1 %; Eosinophils # (A) 0.1 k/uL (0-0.7); Eosinophils % (A) 2 %; HCT 32.1 % (34.0-46.0); HGB 10.1 gm/dL (11.4-16.0); Hypochromasia Slight; Lymphocytes # (A) 1.2 k/uL (1.0-4.8); Lymphocytes % (A) 35 %; MCH 27.2 pg (25.0-35.0); MCHC 31.5 g/dL (31.0-37.0); MCV 86.2 fL (80.0-100.0); Mean Platelet Volume 7.7; Monocytes # (A) 0.3 k/uL (0-1.0); Monocytes % (A) 9 %; Neutrophils # (A) 1.7 k/uL (1.3-7.7); Neutrophils % (A) 51 %; Platelet Count 194 k/uL (150-450); RBC 3.73 m/uL (3.80-5.40); RDW 15.7 % (11.5-15.5); WBC 3.3 k/uL (3.8-10.6)
[2018-02-19] MEDS: LABETALOL 100 MG TAB PO SCH (08:11)
[2018-02-19] MEDS: DOCUSATE 100 MG CAP PO SCH (08:11)
[2018-02-19] MEDS: CITALOPRAM HYDROBROMIDE 20 MG TAB PO SCH (08:12)
[2018-02-19] MEDS: amLODIPine 5 MG TAB PO SCH (08:12)
[2018-02-19] MEDS: HYDROCHLOROTHIAZIDE 25 MG TAB PO SCH (08:12)
[2018-02-19] MEDS: CILOSTAZOL 100 MG TAB PO SCH (08:14)
[2018-02-19] MEDS: MORPHINE SULFATE ER 15 MG TABLET PO SCH (08:16)
[2018-02-19] MEDS ORDERED: ASPIRIN 325 MG TAB PO SCH (09:00)
[2018-02-19] MEDS ORDERED: FAMOTIDINE 20 MG TAB PO SCH (09:00)
[2018-02-19 10:15] VITALS: RESP 18
--- NOTE | 2018-02-19 10:58 | P.DS ---
Providers Date of admission: 02/17/18 20:56 Expected date of discharge: 02/19/18 Attending physician: Carl Alas Consults: 02/17/18 22:16 Consult Physician Routine Consulting Provider: Ramos Laureano Consult Reason/Comments: ACS Do you want consulting provider notified?: Yes, Notify in am Primary care physician: Allyson Petty [facility] Course: this is a 62-year-old female patient of Dr. Petty with past medical history of coronary artery disease status post coronary artery bypass graft in 1999 for three-vessel (needed 4 vessel), hypertension. Patient has not followed up with Dr. Thanh Laureano in 5 years. She last saw Dr. child 3 months ago and follows with her every 3 months. Patient developed chest tightness yesterday at 3 PM without radiation, shortness of breath or diaphoresis. Patient came into [facility] emergency center for evaluation. She was found to have a BUN of 19 creatinine 1.30. Unknown baseline. Patient was hypertensive and was started on the nitroglycerin drip which has subsequently been discontinued by cardiology. She was started on amlodipine on top of her normal home medications of labetalol and hydrochlorothiazide. Patient has been ordered for serial troponins, admission to the selective care unit and cardiology consult. Now the patient did not want to stay was planning to sign out AMA which she decided against.. 02/19: Patient denies having any chest pain. She states she is feeling better in general. She has been up and ambulating in the hallway with no lightheadedness or dizziness. VQ scan is low probability for pulmonary embolism. Echocardiogram reveals EF of 55-60% with moderate concentric left ventricular hypertrophy, LA severely dilated at greater than 40, mild aortic regurgitation, mild aortic stenosis, moderate mitral regurgitation, mild tricuspid regurgitation. Patient has had improved blood pressure control with the addition of Norvasc and clonidine. Patient will be discharged home today in stable condition. Discharge diagnoses: 1. Emergent hypertension 2. Chest pain, possible angina. 3. History of coronary artery disease status post previous CABG. 4. Recurrent depression. 5. Chronic pain. Discharge plan: return home Impression and plan of care have been directed as dictated by the signing physician. Milagro Gordon nurse practitioner acting as scribe for signing physician. Patient Condition at Discharge: Fair Plan - Discharge Summary New Discharge Prescriptions: New amLODIPine [Norvasc] 5 mg PO BID #60 tab Aspirin EC [Ecotrin Low Dose] 81 mg PO DAILY #30 tablet. Atorvastatin [Lipitor] 80 mg PO HS #30 tab cloNIDine HCL [Catapres] 0.1 mg PO TID #90 tab Hydrochlorothiazide [Hydrodiuril] 25 mg PO DAILY #30 tab Continue Morphine Sulfate [Ms Contin] 15 mg PO DAILY Hydrocodone/Acetaminophen [[place] 10-325] 1 tab PO QID Doxepin [SINEquan] 25 mg PO HS Citalopram Hydrobromide [CeleXA] 20 mg PO DAILY hydrALAZINE HCL [Apresoline] 100 mg PO TID Lansoprazole [Prevacid] 15 mg PO DAILY Labetalol [Trandate] 100 mg PO BID Docusate [Colace] 100 mg PO DAILY Cilostazol [Pletal] 100 mg PO BID Discharge Medication List Cilostazol [Pletal] 100 mg PO BID 02/17/18 [History] Citalopram Hydrobromide [CeleXA] 20 mg PO DAILY 02/17/18 [History] Docusate [Colace] 100 mg PO DAILY 02/17/18 [History] Doxepin [SINEquan] 25 mg PO HS 02/17/18 [History] Hydrocodone/Acetaminophen [[place] 10-325] 1 tab PO QID 02/17/18 [History] Labetalol [Trandate] 100 mg PO BID 02/17/18 [History] Lansoprazole [Prevacid] 15 mg PO DAILY 02/17/18 [History] Morphine Sulfate [Ms Contin] 15 mg PO DAILY 02/17/18 [History] hydrALAZINE HCL [Apresoline] 100 mg PO TID 02/17/18 [History] Aspirin EC [Ecotrin Low Dose] 81 mg PO DAILY #30 tablet. 02/19/18 [Rx] Atorvastatin [Lipitor] 80 mg PO HS #30 tab 02/19/18 [Rx] Hydrochlorothiazide [Hydrodiuril] 25 mg PO DAILY #30 tab 02/19/18 [Rx] amLODIPine [Norvasc] 5 mg PO BID #60 tab 02/19/18 [Rx] cloNIDine HCL [Catapres] 0.1 mg PO TID #90 tab 02/19/18 [Rx] Follow up Appointment(s)/Referral(s): Allyson Petty MD [Primary Care Provider] - 1 Week (patient needs to make follow- up appointment, office is closed) Bipin Solis MD [STAFF PHYSICIAN] - 02/24/18 8:45 am Discharge Disposition: HOME SELF-CARE
[2018-02-19] MEDS: HYDROcodone/APAP 10-325MG 1 EACH TAB PO PRN (11:38)
--- NOTE | 2018-02-19 11:55 | P.PN ---
Subjective Progress Note Date: 02/19/18 Principal diagnosis: Chest pain and hypertension This is a 62-year-old female with history of coronary artery disease and prior bypass surgery in 1999, hypertension, hyperlipidemia, nicotine dependence, who presents to the hospital following an episode of chest pain. She states that she had chest heaviness and pressure around 3 PM in the afternoon yesterday, she took one sublingual nitroglycerin with relief of symptoms. She then came to the emergency room for further evaluation. Patient does not follow with a audio/video engineer regularly, she follows with her primary care doctor who is Dr. Petty. She states that she had a stress test performed approximately 2 years ago. EKG on arrival here showed a normal sinus rhythm with lateral ST-T wave changes noted. Her blood pressure on arrival 186/80 with a heart rate in the 70s, 96% on room air. Blood pressure this morning to 21/101 with a heart rate in the 70s, 94% on room air. White blood cell count 6.0, Humulin 10.6, platelet count 221. D-dimer 1.18, sodium 141, potassium 4.9 , BUN 19, creatinine 1.3, magnesium 2.1. Initial troponin 0.012, no subsequent troponins have been drawn since her admission to the ER. BNP level MCDL. The time of my examination this morning, she is currently chest pain-free and quite eager to be discharged. She is currently on IV heparin drip along with IV nitroglycerin drip. Patient denies any recent long travel or inactivity, no recent surgeries. 02/19/2018 Patient seen and examined this morning, she was seen yesterday in consultation by Dr. Nguyen, was felt that the patient's symptoms were likely secondary to her accelerated hypertension. Every scan was performed which was low probability for pulmonary embolism. The pressure this morning 140/70 with a heart rate in the 70s, patient denies any chest discomfort and is quite eager to be discharged home today. Objective - Vital Signs Vital signs: Vital Signs Temp 98.4 F 02/19/18 08:00 Pulse 72 02/19/18 08:00 Resp 18 02/19/18 08:00 BP 140/73 02/19/18 08:00 Pulse Ox 96 02/19/18 09:48 Intake & Output 02/18/18 02/19/18 02/19/18 18:59 06:59 18:59 Intake Total 160.833 230 180 Balance 160.833 230 180 Weight 52.1 kg 52.1 kg Intake: Intake, IV Titration 160.833 Amount Heparin Sod,Pork in 0.45% 160.833 NaCl 25,000 unit In 0.45 % NaCl 1 500ml.bag @ 12 UNITS/KG/HR 12.5 mls/hr IV .Q24H [facility] Rx#: [id number] Oral 230 180 Other: # Voids 2 2 - Exam PHYSICAL EXAMINATION: GENERAL: 62-year-old female in no acute distress at the time of my examination HEENT: Head is atraumatic, normocephalic. Pupils equal, round. Sclera anicteric. Conjunctiva are clear. Mucous membranes of the mouth are moist. Neck is supple. There is no elevated jugular venous pressure.] bruit is heard. HEART EXAMINATION: Heart S1, S2 normal. No murmur or gallop heard. CHEST EXAMINATION: Lungs are clear to auscultation and precussion. No chest wall tenderness is noted on palpation or with deep breathing. ABDOMEN: Soft, nontender. Bowel sounds are heard. No organomegaly noted. EXTREMITIES: 2+ peripheral pulses with no evidence of peripheral edema and no calf tenderness noted. NEUROLOGIC patient is awake, alert and oriented ?-3. . - Labs CBC & Chem 7: 02/19/18 05:48 02/17/18 19:30 Labs: Abnormal Lab Results - Last 24 Hours (Table) 02/19/18 Range/Units 05:48 WBC 3.3 L (3.8-10.6) k/uL RBC 3.73 L (3.80-5.40) m/uL Hgb 10.1 L (11.4-16.0) gm/dL Hct 32.1 L (34.0-46.0) % RDW 15.7 H (11.5-15.5) % Assessment and Plan Plan: Assessment and plan #1 chest discomfort, somewhat concerning for possible angina. Relief with one sublingual nitroglycerin. Troponins negative 3. EKG shows normal sinus rhythm with ST-T wave changes noted in the lateral leads. #2 known history of coronary artery disease with prior bypass surgery, we will obtain details of this #3 hypertension, uncontrolled #4 hyperlipidemia, not on cholesterol medications at home #5 nicotine dependence #6 noncompliance #7 mildly renal function, creatinine 1.3 Plan Echo cardiac gram with Doppler study was performed which revealed a normal left ventricular systolic function. Blood pressure much improved today. From cardiology's perspective, patient may be able to be discharged home today to follow-up with Dr. Nguyen in the office post discharge. DNP note has been reviewed, I agree with a documented findings and plan of care. Patient was seen and examined.
[2018-02-19 13:39] VITALS: BP 151/88; PULSE 58; TEMP 97.7
== END 2018-02-19 15:03 | disposition home or self-care (01) | DRG 305 ==
LOC: EC 19:00 → 6SEL 20:56
PROVIDERS: ADMIT Internal Medicine Geriatric Medicine; ATTEND Internal Medicine Geriatric Medicine
DX: I16.1 Hypertensive emergency (principal); F33.9 Major depressive disorder, recurrent, unspecified; I25.119 Atherosclerotic heart disease of native coronary artery with unspecified angina pectoris; F17.210 Nicotine dependence, cigarettes, uncomplicated; E78.5 Hyperlipidemia, unspecified; F17.200 Nicotine dependence, unspecified, uncomplicated; G89.29 Other chronic pain; I08.3 Combined rheumatic disorders of mitral, aortic and tricuspid valves; I10 Essential (primary) hypertension; Z79.899 Other long term (current) drug therapy; Z82.49 Family history of ischemic heart disease and other diseases of the circulatory system; Z90.710 Acquired absence of both cervix and uterus; Z91.19 Patient's noncompliance with other medical treatment and regimen; Z95.1 Presence of aortocoronary bypass graft; Z98.84 Bariatric surgery status; Z79.891 Long term (current) use of opiate analgesic; Z95.5 Presence of coronary angioplasty implant and graft
CPT/HCPCS: 36415; 71046; 78582; 80053; 82550; 82553; 83735; 83880; 84484; 85025; 85379; 85610; 85730; 93005; 93306; 96365; 96366; 96368; 96376; 99285

== ENCOUNTER → 2020-05-17 | Outpatient (CLI) | payer MEDICARE ==
--- NOTE | 2020-05-17 19:29 | CT ---
EXAMINATION TYPE: CT angio abd aorta w/Runoff DATE OF EXAM: 05/17/2020 HISTORY: stenosis CT angiography of the abdominal aorta and bilateral lower extremities performed. Three-dimensional im ages and MIP images were generated and utilized on a separate workstation. CT DLP: 591.6mGycm Automated Exposure Control for Dose Reduction was Utilized. CONTRAST: CT scan of the abdomen and pelvis is performed with IV Contrast, patient injected with 80 mL of Isovu e 370. COMPARISON: CT abdomen pelvis 08/27/2010. FINDINGS: CTA Abdomen and pelvis: The abdominal aorta does demonstrate infrarenal multifocal aneurysmal dilatat ion measuring up to 3 cm AP at the proximal infrarenal portion (4:57), 2.8 cm of the mid infrarenal p ortion (4:67), and 3.1 x 3.1 cm of the distal infrarenal portion with eccentric mural thrombus (4:84) . No evidence of dissection. Moderate calcified plaquing is identified within the abdominal aorta. The origins of the superior mesenteric artery, renal arteries, inferior mesenteric artery, and celiac axis are patent without hemodynamically significant stenosis. Single right renal artery. 2 left jn l arteries, the inferior of which is diminutive. Common, external, and left internal iliac arteries d emonstrate calcified atherosclerotic disease with no aneurysm or significant stenosis. There is high- grade stenosis of the origin of the right internal iliac artery with immediate reconstitution. Right lower extremity: Right common femoral artery is patent. There is occlusion of the right superficial femoral artery fro m the ostium, with reconstitution of the distal superficial femoral artery with multifocal significan t stenosis. The popliteal artery demonstrates no significant stenosis. There is three-vessel runoff to the right foot. Left lower extremity: Right common femoral artery is patent. There is occlusion of the left superficial femoral artery from the ostium, with reconstitution of the distal superficial femoral artery at the popliteal artery. Th e popliteal artery demonstrates no significant stenosis. The posterior tibial artery occludes proxima lly. There is two-vessel runoff to the left foot via the peroneal and anterior tibial arteries. VISCERA: The liver demonstrates heterogenous appearance, with foci of arterial enhancement in the left lobe (4 :22) and and the right inferior lobe (4:59). Status post cholecystectomy. No intrahepatic or extrahep atic biliary ductal dilatation. Pancreas normal. There is heterogenous enhancement of the spleen ther e is a 3.7 x 5.2 cm hypodense lesion of the spleen laterally, likely pseudocyst after 2010 infectious process. Splenule. Adrenal glands are normal. Too small to characterize hypodense lesions of the kid neys. No hydronephrosis. No evidence of bowel obstruction or thickening. Postsurgical changes of the stomach and right mid abd omen bowel loops. No free fluid or pneumoperitoneum. Urinary bladder normal. Status post hysterectomy . No lymphadenopathy. Left hip arthroplasty. Decreased osseous mineralization. Mild superior endplate compression deformiti es of L5 and T12. Degenerative changes of the spine. IMPRESSIONS: 1. Multifocal infrarenal abdominal aortic aneurysm measures up to 3.1 cm. 2. High-grade stenosis of the origin of the right internal iliac artery with immediate reconstitution . 3. Occluded bilateral superficial femoral arteries with distal reconstitution. 4. Three-vessel runoff to the right foot. 5. Two-vessel runoff to the left foot. 6. Foci of arterial enhancement within the liver may represent mass lesion including HCC. Recommend [facility] liver mass protocol for further characterization. 7. Decreased osseous mineralization. Age-indeterminate mild superior endplate compression deformities of L5 and T12. A Yellow level critical message alert has been initiated for Ramos Laureano MD via the [employer] Critical Results System on 05/17/2020 7:26 PM. This message alert has been sent to Ramos arora MD via the preferences provided by the clinician for the receipt of Radiology Critical Findings . Message ID [id number].
== END | disposition home or self-care (01) ==
LOC: RADCTMAIN 07:40
PROVIDERS: ATTEND Internal Medicine Interventional Cardiology
DX: I71.4 Abdominal aortic aneurysm, without rupture (principal); I70.8 Atherosclerosis of other arteries; I70.208 Unspecified atherosclerosis of native arteries of extremities, other extremity
CPT/HCPCS: 82565; 84520; 75635; 36415; Q9967

== ENCOUNTER 2020-07-01 07:47 | Day surgery (SDC) | payer MEDICARE ==
[2020-06-24 15:55] VITALS: BMI 19.5
[~2020-07-01 07:47] MED LIST changes: +ALPRAZolam 0.25 MG TAB PO PRN; +ASPIRIN 325 MG TAB PO ONE; -HYDROcodone/APAP 10-325MG 1 EACH TAB ONE; +SODIUM CHLORIDE 0.9% 1,000 ML in EMPTY BAG 1 BAG IV ONE
[2020-07-01 08:11] VITALS: RESP 16; TEMP 98
[2020-07-01] MEDS ORDERED: SODIUM CHLORIDE 0.9% 1,000 ML IV ONE (08:11)
[2020-07-01] MEDS ORDERED: MIDAZOLAM 2 MG/2 ML VIAL IV ONE (08:35)
[2020-07-01] MEDS ORDERED: LIDOCAINE 1% INJ 10MG/ML (20 ML MDV) SQ ONE (08:35)
[2020-07-01] MEDS ORDERED: fentaNYL (PF) 50 MCG/ML 2 ML AMP IV ONE (08:55)
--- NOTE | 2020-07-01 10:13 | IR ---
EXAMINATION TYPE: IR angio abdominal w runoff DATE OF EXAM: 07/01/2020 COMPARISON: NONE HISTORY: Fluoroscopy time. Fluoroscopy was provided to the referring clinician.
--- NOTE | 2020-07-01 10:33 | AN ---
ANGIOGRAPHY REPORT ABDOMINAL AORTOGRAM AND RIGHT LOWER EXTREMITY ANGIOGRAM: DATE OF SERVICE: 07/01/2020 PERFORMING PHYSICIAN: Bipin Solis MD. PROCEDURE PERFORMED: 1. An abdominal aortogram. 2. Right lower extremity runoff. INDICATION: This is a very pleasant 64-year-old female patient who sees Dr. Laureano in the office on a regular basis, who was experiencing bilateral lower extremities intermittent claudication. She was brought today to undergo an angiogram using CO2. APPROACH: Right common femoral artery. COMPLICATION: None. LEVEL OF SEDATION: Moderate with sedation length of 20 minutes. PROCEDURE DESCRIPTION: After obtaining an informed consent, the patient was brought to the cardiac laboratory worker. The right common femoral artery was cannulated using micropuncture technique, the micropuncture wire passed easily, then I placed a 5-Divehi sheath at the right common femoral artery. After that, I did an abdominal aortogram and right lower extremity runoff using 5- Divehi pigtail catheter which was initially placed at the level of the renal arteries, then it was pulled into above the bifurcation of the aorta to right and left common iliac arteries. The procedure was completed without any complication. SELECTIVE PERIPHERAL ANGIOGRAM: 1. The aorta is calcified with mild disease only. 2. The right and left common iliac arteries appeared to be calcified with mild to moderate disease. 3. External iliac arteries appeared to have mild to moderate disease and they are calcified as well. 4. Common femoral arteries appeared to be calcified with mild to moderate disease as well. 5. The right SFA is occluded from the ostium all the way to the popliteal. 6. The popliteal appeared to have mild to moderate disease. 7. Below the knee included was arteries below the knee on the right side. CONCLUSION: 1. Mild to moderate aortoiliac disease. 2. Occluded right SFA. POSTPROCEDURE MANAGEMENT: 1. A CROSS ROLLER of the right SFA. 2. Left lower extremity runoff. MMODL / IJN: [id number] /
[2020-07-01] MEDS ORDERED: HYDROcodone/APAP 10-325MG 1 EACH TAB ONE (13:21)
[2020-07-01 14:11] VITALS: BP 132/62; PULSE 65
== END 2020-07-01 14:29 | disposition home or self-care (01) ==
LOC: CATHCVL 07:47
PROVIDERS: ATTEND Internal Medicine Interventional Cardiology
DX: I70.213 Atherosclerosis of native arteries of extremities with intermittent claudication, bilateral legs (principal); I70.0 Atherosclerosis of aorta; I70.8 Atherosclerosis of other arteries; I25.10 Atherosclerotic heart disease of native coronary artery without angina pectoris; E78.5 Hyperlipidemia, unspecified; K76.89 Other specified diseases of liver; I12.9 Hypertensive chronic kidney disease with stage 1 through stage 4 chronic kidney disease, or unspecified chronic kidney disease; N18.9 Chronic kidney disease, unspecified; F17.210 Nicotine dependence, cigarettes, uncomplicated; Z91.041 Radiographic dye allergy status; Z98.61 Coronary angioplasty status; Z79.82 Long term (current) use of aspirin; Z79.899 Other long term (current) drug therapy; Z91.048 Other nonmedicinal substance allergy status; Z88.8 Allergy status to other drugs, medicaments and biological substances
CPT/HCPCS: 36200; 75625; 75716; C1894 ×2; C1769 ×4; J2250; J2001; J3010

== ENCOUNTER 2020-07-17 08:37 | Day surgery (SDC) | payer MEDICARE ==
[2020-07-15 15:13] VITALS: BMI 19.5
[~2020-07-17 08:37] MED LIST changes: -ASPIRIN 325 MG TAB PO ONE; +ASPIRIN 325 MG TAB PO PRN; +ZOLPIDEM 5 MG TAB PO PRN
[2020-07-17] MEDS ORDERED: SODIUM CHLORIDE 0.9% 1,000 ML IV ONE (09:08)
[2020-07-17] MEDS ORDERED: methylPREDNISolone SOD SUCCI 125 MG/2 ML VIAL IV ONE ×2 (09:11→09:25)
[2020-07-17] MEDS: fentaNYL (PF) 50 MCG/ML 2 ML AMP IV ONE ×2 (11:30→12:38)
[2020-07-17] MEDS ORDERED: MIDAZOLAM 2 MG/2 ML VIAL IV ONE (11:30)
[2020-07-17] MEDS ORDERED: LIDOCAINE 1% INJ 10MG/ML (20 ML MDV) SQ ONE (11:30)
[2020-07-17] MEDS ORDERED: HEPARIN SODIUM 1,000 UN/ML (10ML VL) IV ONE (11:40)
[2020-07-17] MEDS: MIDAZOLAM 2 MG/2 ML VIAL IV ONE ×2 (12:10→13:05)
[2020-07-17] MEDS ORDERED: NITROGLYCERIN 1000MCG/10ML SYRINGE INTRAARTER ONE (13:22)
[2020-07-17] MEDS ORDERED: niCARdipine Syringe (1,000 mcg/10 mL) INTRAARTER ONE (13:23)
[2020-07-17] MEDS ORDERED: IOPAMIDOL-250 100ML BTL INTRAARTER ONE (13:23)
[2020-07-17] MEDS ORDERED: CLOPIDOGREL 75 MG TAB PO ONE (13:26)
[2020-07-17] MEDS ORDERED: DOCUSATE 100 MG CAP PO PRN (13:42)
[2020-07-17] MEDS ORDERED: hydroCHLOROthiazide 25 MG TAB PO PRN (13:42)
[2020-07-17] MEDS ORDERED: SODIUM CHLORIDE 0.9% 1,000 ML in EMPTY BAG 1 BAG IV SCH (13:45)
[2020-07-17] MEDS ORDERED: HYDROmorphone 0.5 MG/0.5 ML SYRINGE IVP PRN (14:01)
--- NOTE | 2020-07-17 14:04 | IR ---
EXAMINATION TYPE: IR well logging captain mud analysis femoral popliteal DATE OF EXAM: 07/17/2020 COMPARISON: NONE HISTORY: Fluoroscopy time. Fluoroscopy was provided to the referring clinician.
[2020-07-17] MEDS: HYDROmorphone 1 MG/ML 1 ML SYRINGE IVP PRN ×3 (14:45→21:00)
[2020-07-17] MEDS ORDERED: ATROPINE SULFATE 0.1 MG/ML 10ML SYRINGE ONE (15:42)
--- NOTE | 2020-07-17 17:19 | LTR ---
July 17, 2020 To: Dr. Petty Re: Hayley Saleem (53) Ms. Hayley Saleem underwent today successful balloon angioplasty of the right femoral artery with good angiographic results and without any complication. Thank you for allowing me to participate in her care. Please do not hesitate to call if you have any question or concern. Sincerely, Bipin Solis M.D. GEOFFREY / YONG: [id number] /
[2020-07-17 17:42] LABS: Glucose,Whole Blood 225 mg/dL (75-99)
--- NOTE | 2020-07-17 17:58 | PCN ---
PROCEDURE NOTE DATE OF SERVICE: 07/17/2020 PERFORMING PHYSICIAN: Bipin Solis M.D. PROCEDURES PERFORMED: 1. Atherectomy of the right popliteal using the HawkOne device with extraction of significant plaque. 2. Successful balloon angioplasty of the right popliteal using a 4.0 x 80 mm drug- coated balloon with an excellent angiographic result. 3. Successful balloon angioplasty and stenting of the right SFA using three Zilver drug-coated stents with excellent angiographic results. 4. Intravascular ultrasound (IVUS) of the right popliteal and right SFA. 5. Right lower extremity angiogram. 6. Left common femoral artery angiogram. INDICATION: Intermittent claudication in this 64-year-old female patient who sees Dr. Laureano in the office as an outpatient with history of peripheral arterial disease and known occluded right SFA on prior angiogram that was performed using CO2. COMPLICATIONS: None. LEVEL OF SEDATION: Moderate, with sedation length of 120 minutes. Maximal amount of contrast 70 to 75 mL of contrast. PROCEDURE DESCRIPTION: After obtaining informed consent, the patient was brought to the cardiac cath lab tech. The left common femoral artery was cannulated using micropuncture technique. The micropuncture wire passed easily. Then I placed a 6-Lao sheath 70 cm at the left common femoral artery. I did select the right profunda using 0.035 stiff Glidewire with the back-up support of 5-Lao RIM catheter. After that I was able to advance the long sheath over the stiff Glidewire and the RIM catheter all the way to the right common femoral artery. Right lower extremity angiogram was performed with injection through the sheath and that revealed two-vessel runoff below the knee on the right side with anterior tibial and peroneal and also occluded right SFA on long segment that extends from the ostium all the way to the canal with severe disease involving the right popliteal. The [employer] MANAGER was crossed using an 0.018 lobato-tipped Glidewire with the back-up support of 0.018 CXI catheter. Subsequently I did exchange my 0.018 wire for an 0.014 wire, where I did intravascular ultrasound which proved that I was in the false lumen of the SFA but true lumen of the right popliteal. Because of that, I decided to do atherectomy only on the right popliteal. Atherectomy of the right popliteal was performed using the HawkOne device with the extraction of significant amount of plaque. After that I did balloon angioplasty of the right popliteal using a 4 mm drug-coated balloon. The balloon was inflated under its nominal pressure for about 3 minutes, and the following angiogram showed excellent angiographic results. For the right SFA, there was dissection involving the distal and proximal cap and because I was subintimal all the way I decided to cover that with a stent. Distally I placed a 6.0 x 140 mm and proximally a 6.0 x 140 mm Zilver PTX and in the mid I placed a 6.0 x 80 mm Zilver PTX. All stents were post-dilated using 5 mm balloon. The final angiogram showed excellent angiographic results and the procedure was completed without any complication. Finally I exchanged my long sheath for a short sheath using 0.035 stiff Glidewire. Then I did selective left common femoral artery angiogram. The procedure was completed without any complication. POST-PROCEDURE MANAGEMENT: 1. Dual anti-platelet therapy. 2. Risk factor modifications. 3. Follow up with the patient. MMNANETTE / SKYLERN: [id number] /
[2020-07-17 20:26] LABS: Glucose,Whole Blood 214 mg/dL (75-99)
[2020-07-17] MEDS: amLODIPine 5 MG TAB PO SCH (20:59)
[2020-07-17] MEDS ORDERED: DOXEPIN 25 MG CAP PO SCH (21:00)
[2020-07-17] MEDS ORDERED: ATORVASTATIN 80 MG TAB PO SCH (21:00)
[2020-07-17] MEDS ORDERED: hydrALAZINE HCL 25 MG TAB PO SCH (21:00)
[2020-07-17 22:43] VITALS: RESP 18
[2020-07-17] MEDS: cilostazoL 100 MG TAB PO SCH (22:50)
[2020-07-18 05:46] LABS: Glucose,Whole Blood 145 mg/dL (75-99)
[2020-07-18] MEDS: HYDROmorphone 1 MG/ML 1 ML SYRINGE IVP PRN ×2 (06:14→10:49)
[2020-07-18 08:13] LABS: Anisocytosis Slight; Basophils % (A) 0 %; Eosinophils % (A) 0 %; HCT 29.3 % (34.0-46.0); HGB 8.7 gm/dL (11.4-16.0); Hypochromasia Marked; Lymphocytes # (A) 1.5 k/uL (1.0-4.8); Lymphocytes % (A) 16 %; MCH 25.8 pg (25.0-35.0); MCHC 29.6 g/dL (31.0-37.0); MCV 87.4 fL (80.0-100.0); Mean Platelet Volume 8.2; Monocytes # (A) 0.4 k/uL (0-1.0); Monocytes % (A) 4 %; Neutrophils % (A) 78 %; Platelet Count 262 k/uL (150-450); RBC 3.36 m/uL (3.80-5.40); RDW 17.8 % (11.5-15.5)
[2020-07-18 08:20] LABS: Calcium 8.1 mg/dL (8.4-10.2); Potassium 4.5 mmol/L (3.5-5.1)
[2020-07-18] MEDS: amLODIPine 5 MG TAB PO SCH (08:56)
[2020-07-18] MEDS: cilostazoL 100 MG TAB PO SCH (08:57)
[2020-07-18] MEDS ORDERED: ASPIRIN 81 MG PO SCH (09:00)
[2020-07-18] MEDS ORDERED: CITALOPRAM HYDROBROMIDE 20 MG TAB PO SCH (09:00)
[2020-07-18] MEDS ORDERED: PANTOPRAZOLE 40 MG TABLET PO SCH (09:00)
[2020-07-18] MEDS ORDERED: hydrALAZINE HCL 50 MG TAB PO SCH (09:00)
[2020-07-18] MEDS ORDERED: CLOPIDOGREL 75 MG TAB PO SCH (09:00)
[2020-07-18 09:05] VITALS: BP 130/52; PULSE 66; TEMP 97.6
--- NOTE | 2020-07-18 10:15 | DS ---
DISCHARGE SUMMARY ADMISSION DATE: 07/17/2020 DISCHARGE DATE: 07/18/2020 BRIEF HISTORY: This is a 64-year-old female patient who sees Dr. Laureano in the office on a regular basis who underwent yesterday successful crossing chronic total occlusion of the right SFA along with successful balloon angioplasty and stenting of the right SFA with an excellent angiographic results and without any complication. The patient was seen this morning. She is asymptomatic. The right foot is warmer and she is not having pain at this point. The left groin is soft and nontender and without any bruises. The patient is going to be discharged home on dual anti-platelet therapy and she will follow up with Dr. Laureano in the office in a week. MMODL / IJN: [id number] /
[2020-07-18 11:40] LABS: Glucose,Whole Blood 146 mg/dL (75-99)
== END 2020-07-18 12:30 | disposition home or self-care (01) ==
LOC: CATHCVL 08:37 → 3SCARD 13:30 → CATHCVL 07-18 12:30
PROVIDERS: ATTEND Internal Medicine Interventional Cardiology
DX: I70.211 Atherosclerosis of native arteries of extremities with intermittent claudication, right leg (principal); I70.92 Chronic total occlusion of artery of the extremities; I10 Essential (primary) hypertension; I25.10 Atherosclerotic heart disease of native coronary artery without angina pectoris; J44.9 Chronic obstructive pulmonary disease, unspecified; F17.210 Nicotine dependence, cigarettes, uncomplicated; E78.5 Hyperlipidemia, unspecified; Z79.82 Long term (current) use of aspirin; Z79.899 Other long term (current) drug therapy; Z88.8 Allergy status to other drugs, medicaments and biological substances; Z91.041 Radiographic dye allergy status; Z95.1 Presence of aortocoronary bypass graft
CPT/HCPCS: 37227; 85347; 37252; 80048; 85025; C1894 ×2; C1769 ×7; C1725 ×4; C1714; C1753; C2623; C1874 ×2; J2250; J2930; J2001; J3010; J1644; J1170 ×3; Q9966

== ENCOUNTER 2021-01-24 14:32 | Emergency (ER) | payer MEDICARE ==
[2021-01-24 14:53] VITALS: TEMP 98.3
--- NOTE | 2021-01-24 15:37 | ED ---
General Adult HPI - General Chief complaint: Fall Stated complaint: Fall, Bilateral Leg Pain Time Seen by Provider: 01/24/21 15:10 Source: patient, RN notes reviewed, old records reviewed Mode of arrival: wheelchair Limitations: no limitations - History of Present Illness Initial comments: 65-year-old female presenting for evaluation of fall which occurred yesterday afternoon. Patient was getting into her vehicle, fell onto her left side. She has previous history of left total hip replacement and is concerned she may be injured her hip as she does have pain in the left hip. She also has pain in the left ankle and knee. She did have head trauma, uncertain if she lost consciousness. Injury was greater than 24 hours ago. No chest pain or palp itations. No other symptoms. - Related Data Home Medications Medication Instructions Recorded Confirmed Hydrocodone/Acetaminophen [Sebeka 1 tab PO QID 02/17/18 01/24/21 10-325] Lansoprazole [Prevacid] 15 mg PO DAILY 02/17/18 01/24/21 hydrALAZINE HCL [Apresoline] 100 mg PO BID 07/01/20 01/24/21 Atorvastatin [Lipitor] 40 mg PO HS 01/24/21 01/24/21 DULoxetine HCL [Cymbalta] 30 mg PO BID 01/24/21 01/24/21 Doxepin HCl 75 mg PO DAILY 01/24/21 01/24/21 Fluticasone Nasal Pegram [Flonase 1 spr EA NOSTRIL BID 01/24/21 01/24/21 Nasal Pegram] Furosemide [Lasix] 20 mg PO DAILY PRN 01/24/21 01/24/21 Gabapentin [Neurontin] 300 mg PO BID 01/24/21 01/24/21 Ipratropium/Albuter 20-100Mcg 1 puff INHALATION RT-QID 01/24/21 01/24/21 [Combivent Respimat 20-100Mcg Inhaler] Metoprolol Tartrate [Lopressor] 25 mg PO HS 01/24/21 01/24/21 Metoprolol Tartrate [Lopressor] 50 mg PO DAILY 01/24/21 01/24/21 amLODIPine [Norvasc] 5 mg PO HS 01/24/21 01/24/21 Previous Rx's Medication Instructions Recorded Aspirin EC [Ecotrin Low Dose] 81 mg PO DAILY #30 tablet. 02/19/18 Clopidogrel Bisulfate [Plavix] 75 mg PO DAILY #90 tab 07/18/20 Allergies Allergy/AdvReac Type Severity Reaction Status Date / Time Iodinated Contrast Media Allergy Anaphylaxis Verified 01/24/21 16:55 iodine Allergy Anaphylaxis Verified 01/24/21 16:55 Review of Systems ROS Statement: Those systems with pertinent positive or pertinent negative responses have been documented in the HPI. ROS Other: All systems not noted in ROS Statement are negative. Past Medical History Past Medical History: Coronary Artery Disease (CAD), GERD/Reflux, Hyperlipidemia, Hypertension, Pneumonia, Vascular Disorder Additional Past Medical History / Comment(s): heart murmur, poor circulation stephen legs-rt leg worse, edema stephen legs and arms, "PCP watching kidneys", spot on liver, hx kidney stones History of Any Multi-Drug Resistant Organisms: None Reported Past Surgical History: Bariatric Surgery, Cholecystectomy, Coronary Bypass/CABG, Heart Catheterization With Stent, Hysterectomy, Tonsillectomy Additional Past Surgical History / Comment(s): gastric bypass, CABG triple bypass 2000,cystoscopy for kidney stones,two cardiac stents. aortogram(had reaction to iodine) lt ileac stent 07-17-20 Past Anesthesia/Blood Transfusion Reactions: No Reported Reaction Date of Last Stent Placement:: 2006 Past Psychological History: Depression Smoking Status: Current every day smoker Past Alcohol Use History: None Reported Past Drug Use History: None Reported - Past Family History Sister(s) Family Medical History: Hypertension Additional Family Medical History / Comment(s): Patient has one sister with history of hypertension. Mother Family Medical History: Cancer Additional Family Medical History / Comment(s): skin cancer Father Family Medical History: Myocardial Infarction ([place]) Additional Family Medical History / Comment(s): Father at age 55 from massive myocardial infarction. General Exam Limitations: no limitations General appearance: alert, in no apparent distress Head exam: Present: atraumatic, normocephalic Eye exam: Present: normal appearance, PERRL ENT exam: Present: normal exam Neck exam: Present: normal inspection. Absent: tenderness, meningismus Respiratory exam: Present: normal lung sounds bilaterally. Absent: respiratory distress, wheezes Cardiovascular Exam: Present: regular rate, normal rhythm GI/Abdominal exam: Present: soft. Absent: distended, tenderness, guarding Extremities exam: Present: joint swelling. Absent: full ROM (Left lower extremity:, There is some range of motion with movement of the left hip, hematoma to the anterior left knee, and soft tissue swelling of the left ankle. No gross deformity, distal pulses intact.) Back exam: Present: normal inspection Neurological exam: Present: alert, oriented X3, CN II-XII intact. Absent: motor sensory deficit Psychiatric exam: Present: normal affect, normal mood Skin exam: Present: warm, dry, intact, normal color. Absent: cyanosis, diaphoretic Course Vital Signs 01/24/21 01/24/21 14:50 15:30 Temperature 98.3 F Pulse Rate 65 65 Respiratory 20 18 Rate Blood Pressure 150/66 155/63 O2 Sat by Pulse 95 95 Oximetry Medical Decision Making - Medical Decision Making 65-year-old female status post fall which occurred yesterday, left-sided pain in the lower extremity and minor head injury. Head CT negative for intracranial hemorrhage or mass effect. X-ray of the hip shows previous surgical changes without acute fracture, x-rays knee negative for fracture dislocation, x-ray ankle negative for fracture dislocation. Patient pain is manageable with Sebeka which she is prescribed already. She is reassured by x-ray and CT findings. Discharged home with follow-up with her primary care physician. Disposition Clinical Impression: Fall, Knee sprain, Ankle sprain Disposition: HOME SELF-CARE Condition: Good Instructions (If sedation given, give patient instructions): Fall Prevention (ED), Knee Sprain (ED), Ankle Sprain (ED) Is patient prescribed a controlled substance at d/c from ED?: No Referrals: Allyson Petty MD [Primary Care Provider] - 1-2 days Time of Disposition: 18:04
[2021-01-24 16:04] VITALS: RESP 18
--- NOTE | 2021-01-24 17:03 | XR ---
EXAMINATION TYPE: XR knee complete LT DATE OF EXAM: 01/24/2021 COMPARISON: NONE HISTORY: Pain TECHNIQUE: 3 views FINDINGS: There are surgical clips on the medial aspect of the knee. There is small knee joint effusi on. There is no fracture nor dislocation. There is vascular calcification. IMPRESSION: Small joint effusion. No fracture seen.
--- NOTE | 2021-01-24 17:04 | XR ---
EXAMINATION TYPE: XR ankle complete LT DATE OF EXAM: 01/24/2021 COMPARISON: NONE HISTORY: Pain TECHNIQUE: 3 views FINDINGS: There is an Achilles calcaneal spur. Ankle mortise is anatomic. I see no fracture nor dislo cation. The joint spaces are fairly normal. IMPRESSION: Calcaneal spurring. No fracture seen.
--- NOTE | 2021-01-24 17:06 | XR ---
EXAMINATION TYPE: XR Hip Complete LT DATE OF EXAM: 01/24/2021 COMPARISON: NONE HISTORY: Pain TECHNIQUE: 2 views FINDINGS: There is left hip nailing. Components appear in anatomic position. There are surgical vascu lar clips on the medial upper thigh. The acetabulum is intact. I see no fracture. IMPRESSION: No acute abnormality of the left hip.
--- NOTE | 2021-01-24 17:55 | CT ---
EXAMINATION TYPE: CT brain moncho wo con DATE OF EXAM: 01/24/2021 COMPARISON: 08/11/2010 CT brain HISTORY: Fall Pain CT DLP: 1232.1 mGycm Automated exposure control for dose reduction was used. There is cerebral atrophy. There is hypodensity in the periventricular white matter. There is no mass effect nor midline shift. There is no sign of intracranial hemorrhage. The calvarium is intact. Ther e is fairly normal aeration of the mastoid sinuses. The cervical vertebra have normal alignment. Posterior elements are intact. Disc spaces are normal. F acet joints are intact. There is no compression fracture. The skull base is intact. IMPRESSION: Negative CT scan of the cervical spine. No fracture. Mild atrophy and chronic white matter changes probably due to small vessel ischemia. White matter dis ease has progressed compared to old exam.
[2021-01-24] MEDS ORDERED: HYDROcodone/APAP 7.5-325MG 1 EACH TAB PO ONE (18:02)
[2021-01-24 18:31] VITALS: BP 144/62; PULSE 76
== END 2021-01-24 18:38 | disposition home or self-care (01) ==
LOC: EC 14:32
DX: S93.402A Sprain of unspecified ligament of left ankle, initial encounter (principal); S83.92XA Sprain of unspecified site of left knee, initial encounter; E78.5 Hyperlipidemia, unspecified; F17.200 Nicotine dependence, unspecified, uncomplicated; F32.9 Major depressive disorder, single episode, unspecified; I10 Essential (primary) hypertension; I25.10 Atherosclerotic heart disease of native coronary artery without angina pectoris; K21.9 Gastro-esophageal reflux disease without esophagitis; W19.XXXA Unspecified fall, initial encounter; Z79.82 Long term (current) use of aspirin; Z87.442 Personal history of urinary calculi; Z96.642 Presence of left artificial hip joint; Z95.5 Presence of coronary angioplasty implant and graft; Z95.1 Presence of aortocoronary bypass graft; Z98.84 Bariatric surgery status; Z90.49 Acquired absence of other specified parts of digestive tract; Z90.09 Acquired absence of other part of head and neck
CPT/HCPCS: 70450; 72125; 73502; 99284